=== PATIENT | male | born 1950 | race Caucasian/White ===

== ENCOUNTER 2023-09-11 10:34 | Outpatient (CLI) | payer MEDICARE ==
[~2023-09-11 10:34] MED LIST: Magnevist 469MG/ML 20 ML VIAL ONE
== END 2023-09-11 10:35 | disposition home or self-care (01) ==
LOC: CSHMRI 10:34
PROVIDERS: ATTEND Urology
DX: C61 Malignant neoplasm of prostate (principal)
CPT/HCPCS: 72197; 82565